=== PATIENT | male | born 1960 ===

== ENCOUNTER 2018-08-06 16:13 | Emergency (ER) | payer BC ==
[2018-08-06] MEDS ORDERED: Lidocaine 2% EPI 1:200000 MPF*10-20 ML VIAL INJ ONE (16:46)
[2018-08-06] MEDS ORDERED: Tetan/Diph/Pertus SYR(Tdap)* 0.5 ML SYR(BOOSTRIX) use SYR IM ONE (16:53)
--- NOTE | 2018-08-06 16:57 | ED ---
Laceration/Wound HPI - HPI Summary HPI Summary: 58-year-old male presents with left arm laceration. He cut it on a chainsaw. The area is not actively bleeding. He has no medical conditions. tetanus is not up-to-date. denies any foreign body in the wound. - History of Current Complaint Stated Complaint: LT ARM INJURY PER PT Time Seen by Provider: 08/06/18 16:29 Pain Intensity: 2 - Allergy/Home Medications Allergies/Adverse Reactions: Allergies Allergy/AdvReac Type Severity Reaction Status Date / Time No Known Allergies Allergy Verified 05/09/13 14:23 PMH/Surg Hx/FS Hx/Imm Hx Endocrine/Hematology History: Denies: Hx Anticoagulant Therapy Cardiovascular History: Denies: Hx Auto Implanted Cardiovert Defib Infectious Disease History: No Infectious Disease History: Denies: Traveled Outside the [place] in Last 30 Days - Family History Known Family History: Positive: Non-Contributory - Social History Alcohol Use: Occasionally Substance Use Type: Reports: None Review of Systems Negative: Fever Negative: Chest Pain Negative: Shortness Of Breath Positive: Other - left forearm laceration All Other Systems Reviewed And Are Negative: Yes Physical Exam Triage Information Reviewed: Yes Vital Signs On Initial Exam: Initial Vitals Temp Pulse Resp BP Pulse Ox 98.8 F 106 18 112/72 95 08/06/18 16:23 08/06/18 16:23 08/06/18 16:23 08/06/18 16:23 08/06/18 16:23 Vital Signs Reviewed: Yes Appearance: Positive: Well-Appearing Skin: Positive: Warm, Dry, Other - two 3/5cm by 1/2cm laceration to left forearm next to each other with abraded skin in between Head/Face: Positive: Normal Head/Face Inspection Eyes: Positive: Normal, Conjunctiva Clear ENT: Positive: Pharynx normal Respiratory/Lung Sounds: Positive: Clear to Auscultation, Breath Sounds Present Cardiovascular: Positive: Normal, RRR Musculoskeletal: Positive: Normal, Strength/ROM Intact - left forearm, Other - good pulses, sensation grossly intact Neurological: Positive: Normal Psychiatric: Positive: Normal Procedures - Laceration/Wound Repair 1 Location: Other - left dorsal forearm Description: Linear Anesthesia: 2.0%, Lido, Epi Length, Depth and Shape: 3.5 cm long, 0.5 cm deep, abbrated Betadine Prep?: No Irrigated w/ Saline (ccs): 500 Laceration/Wound Explored: contaminated Closure: Single Layer Suture Type: Prolene - 4-0 Number of Sutures: 5 Layer Closure?: No Sterile Dressing Applied?: No - telfa and coban 2 Location: Other - left dorsal foraem Description: Linear Anesthesia: 2.0%, Lido, Epi Length, Depth and Shape: 3.5 cm long, 0.5 cm deep, abbrated Betadine Prep?: No Irrigated w/ Saline (ccs): 500 Laceration/Wound Explored: contaminated Closure: Single Layer Suture Type: Prolene - 4-0 Number of Sutures: 5 Layer Closure?: No Sterile Dressing Applied?: No - telfa and coban Diagnostics - Vital Signs Vital Signs Temp Pulse Resp BP Pulse Ox 08/06/18 16:23 98.8 F 106 18 112/72 95 - Laboratory Lab Statement: Any lab studies that have been ordered have been reviewed, and results considered in the medical decision making process. Laceration Repair Course/Dx - Course Course Of Treatment: 58-year-old male presents with left arm laceration. He cut it on a chainsaw. The area is not actively bleeding. He has no medical conditions. tetanus is not up-to-date. Laceration repaired by [facility]. Two parallel, abrated, 3.5 cm linear lacerations on the left forearm were repaired with 4-5 prolene sutures. 5 simple interrupted sutures were placed per laceration for a total of 10 placed. The area was irrigated with 500 cc of saline and 8 cc og 2% lidocaine with epi was injected prior to repair. Telfa and coban were applied. Pt tolerated well. told to keep area clean and dry. patient understand and agrees with plan. - Differential Dx Differental Diagnoses: Abrasion, Avulsion, Laceration - Clinical Impression Provider Diagnoses: Laceration of left forearm Discharge - Sign-Out/Discharge Documenting (check all that apply): Patient Departure Patient Received Moderate/Deep Sedation with Procedure: No - Discharge Plan Condition: Good Disposition: HOME Patient Education Materials: Care For Your Stitches (ED) Referrals: Shelley Toledo NP [Primary Care Provider] - Additional Instructions: Take Tylenol or ibuprofen for pain every 6 hours as needed Keep area clean and dry for 24 hours Return to ED or primary in 8-10 days to have sutures removed Return to ED if develop signs of infection such as fever, spreading redness, or pus. - Billing Disposition and Condition Condition: GOOD Disposition: Home
[2018-08-06 17:55] VITALS: BP 107/81
== END 2018-08-06 17:53 | disposition home or self-care (01) ==
LOC: ED 16:13
DX: S41.112A Laceration without foreign body of left upper arm, initial encounter (principal); W29.3XXA Contact with powered garden and outdoor hand tools and machinery, initial encounter; Y92.9 Unspecified place or not applicable
CPT/HCPCS: 12002; 90471; 90715; 96374; 99282